=== PATIENT | female | born 1995 | race Two or more races ===

== ENCOUNTER 2024-05-19 00:02 | Emergency (ER) | payer OTHER ==
[~2024-05-19] VITALS: Ht 149.9 cm; Wt 53.4 kg
[2024-05-19] MEDS: ACETAMINOPHEN 325 MG TAB PO ONE (00:17)
[2024-05-19 01:05] VITALS: BP 103/64; PULSE 102; RESP 20; O2SAT 96
[2024-05-19 01:17] VITALS: TEMP 99.8
--- NOTE | 2024-05-19 01:19 | ED.PDOC ---
SOB-HPI HPI Comments This is a 29-year-old female presents to the ED chief complaint flu-like s ymptoms x2 days. Patient reports headache, fever at home of 101, sore throat, and cough. She notes recent ill contacts. No recent travel. Come Tylenol Motrin with relief. Denies vomiting, abdominal pain, difficulty breathing, shortness of breath or chest pain. Chief Complaint: Flu like Time Seen by MD: 00:12 Reviewed notes: Nurses Notes, Medications, Allergies Information Source: Patient Mode of Arrival: Ambulatory Past Medical History PAST MEDICAL HISTORY: Denies Surgical History: Denies all surgeries MANAGER HEART FAILURE History: No Pertinent MANAGER HEART FAILURE History Family History Family History: Reviewed,noncontributory to illness Constitutional: reports: fatigue, fever; denies: chills, diaphoresis, malaise, sweats, weakness, others EENTM: reports: nasal discharge, throat pain; denies: blurred vision, double vi omar, ear bleeding, ear discharge, ear drainage, ear pain, ear ringing, eye pain, eye redness, hearing loss, mouth pain, mouth swelling, nose bleeding, nose congestion, nose pain, photophobia, tearing, throat swelling, voice changes, others Respiratory: reports: cough; denies: hemoptysis, orthopnea, SOB at rest, shortness of breath, SOB with excertion, stridor, wheezing, others Cardiovascular: denies: chest pain, dizzy spells, diaphoresis, Dyspnea on exertion, edema, irregular heart beat, left arm pain, lightheadedness, palpitations, PND, syncope, others Gastrointestinal: denies: abdomen distended, abdominal pain, blood streaked bowels, constipated, diarrhea, dysphagia, difficulty swallowing, hematemesis, melena, nausea, poor appetite, poor fluid intake, rectal bleeding, rectal pain, vomiting, others Genitourinary: denies: abnormal vagina bleeding, burning, dyspareunia, dysuria, flank pain, frequency, hematuria, incontinence, pain, , vagina discharge, urgency, others Neurological: denies: dizziness, fainting, headache, left sided numbness, left sided weakness, numbness, paresthesia, pre-existing deficit, right sided numbnes s, right sided weakness, seizure, speech problems, tingling, tremors, weakness, others Musculoskeletal: denies: back pain, gout, joint pain, joint swelling, muscle pain, muscle stiffness, neck pain, others Integumetry: denies: bruises, change in color, change in hair/nails, dryness, laceration, lesions, lumps, rash, wounds, others Allergic/Immunocompromised: denies: Difficulty Healing, Frequent Infections, Hives, Itching, others Hematologic/Lymphatic: denies: anemia, blood clots, easy bleeding, easy bruising, swollen glands, others Endocrine: denies: excessive hunger, excessive sweating, excessive thirst, excessive urination, flushing, intolerance to cold, intolerance to heat, unexplained weight gain, unexplained weight loss, others Psychiatric: denies: anxiety, bipolar disorder, depression, hopeless, panic disorder, schizophrenia, sleepless, suicidal, others Physical Exam General Appearance: No Apparent Distress, Normal HEENT: Pharyngeal Erythema, TMs Normal Neck: Full Range of Motion, Non-Tender Respiratory: Lungs Clear, No Respiratory Distress, Normal Breath Sounds Cardiovascular: No Murmur, Normal Peripheral Pulses, Regular Rate/Rhythm Breast Exam: Deferred Gastrointestinal: Non Tender, Soft Genitalia: Deferred Pelvic: Deferred Rectal: Deferred Extremities: Normal capillary refill, Normal inspection, Normal range of motion, Non-tender, No pedal edema Musculoskeletal : Apperance: Normal Neurologic: Alert, occupational therapist assistants II-XII nml as Tested, No Motor Deficits, Normal Affect, Normal Mood, No Sensory Deficits Cerebellar Function: Normal Reflexes: Normal Skin: Dry, Normal Color, Warm Lymphatic: No Adenopathy Was a procedure done? Was a procedure done?: No Differential Dx Differential Diagnosis: Pneumonia, Sinusitis, Otitis Media X-Ray, Labs, Meds, VS Vital Signs Date Time Temp Pulse Resp B/P (MAP) Pulse Ox O2 Delivery O2 Flow Rate FiO2 05/19/24 01:17 99.8 05/19/24 01:05 102 20 96 Room Air 05/19/24 01:05 100.2 101 20 103/64 (77) 96 100.2 05/19/24 00:17 101.3 05/19/24 00:07 101.3 126 22 111/53 (72) 97 Current Medications Medications (Trade) Dose Ordered Sig/[place] Route Start Time Stop Time Status Last Admin Acetaminophen (Tylenol Tablet) 650 mg ONCE ONCE PO 05/19/24 00:15 05/19/24 00:16 DC 05/19/24 00:17 X-Ray, Labs, Meds, VS Comment Likely influenza patient is started on Tamiflu and promethazine for cough advised to continue [id number] Tylenol or Motrin as needed for pain or fever per labeled dosing instructions. Increase p.o. fluids with electrolytes. Follow up with your PCP in 2-3 days as necessary ER return precautions given patient indicated understanding agrees with discharge plan of care. Time of 1ST Reevaluation: Reevaluation 1ST: Improved Patient Education/Counseling: Diagnosis, Treatment, Prognosis, Need For Follow Up Family Education/Counseling: No Family Present Departure 1 Departure Time of Disposition: : Impression: Primary Impression: Influenza Disposition: HOME / SELF CARE / HOMELESS Condition: Stable e-Prescriptions Promethazine-Dm (Promethazine Dm 6.25-15 mg/5Ml) 1 Kim Kim 5 ML PO QID for 3 Days, #60 ML Prov: ASHLEY GUARDADO 05/19/24 Oseltamivir Phosphate (Tamiflu) 75 Mg Cap 1 CAP PO BID for 5 Days, #10 CAP Prov: ASHLEY GUARDADO 05/19/24 Discharged With: Self Critical Care Note Critical Care Time?: No Stability Stability form required: No Heart Score Heart Score: Heart Score Response (Comments) Value History N/A 0 EKG N/A 0 Age <45 0 Risk Factors N/A 0 Troponin N/A 0 Total 0 ASHLEY GUARDADO May 19, 2024 01:19
[2024-05-19] MEDS ORDERED: OSEL75CA5 PO (01:26)
[2024-05-19] MEDS ORDERED: PROM1SOL4 PO (01:26)
== END 2024-05-19 01:35 | disposition home or self-care (01) ==
LOC: ER 00:02
DX: J11.1 Influenza due to unidentified influenza virus with other respiratory manifestations (principal)